=== PATIENT | male | born 1965 | race Caucasian/White ===

== ENCOUNTER 2021-03-08 05:07 | Emergency (ER) | payer MEDICAID ==
[~2021-03-08] VITALS: Ht 175.3 cm; Wt 137.6 kg
--- NOTE | 2021-03-08 05:18 | NUR ---
PT BIB [facility], PT HAVING A CHF EXACERBATION, PT LYING ON RIGHT SIDE ONCE PLACED IN HOSPITAL BED HE FEELS BETTER WITH THAT. PT ON O2 NC 2LPM, HE DESATS TO 76% ON ROOM AIR. IV TO RIGHT HAND, INTACT, FLUSHES EASILY, NO REDNESS OR SWELLING. PT ON CR MONITOR, AND LYING IN BED. PT IS METH POSITIVE FROM EARLIER. MD TO SEE PT.
[2021-03-08 05:58] LABS: BASOPHILS % (AUTO) 0 % (0-1); EOSINOPHILS % (AUTO) 4 % (1-7); LYMPHOCYTES % (AUTO) 17 % (22-44); MD NO; MEAN CORPUSCULAR HEMOGLOBIN 27.9 pg (27.5-34.5); MEAN CORPUSCULAR HGB CONC 33.4 g/dL (33.2-36.2); MEAN PLATELET VOLUME 7.6 fL (7.4-10.4); MONOCYTES % (AUTO) 12 % (2-9); NEUTROPHILS % (AUTO) 67 % (42-75); PLATELET COUNT 370 x10^3/uL (130-400); RED BLOOD COUNT 5.17 x10^6/uL (4.38-5.82); RED CELL DISTRIBUTION WIDTH 15.2 % (9.4-14.8)
--- NOTE | 2021-03-08 06:01 | NUR ---
SPOT WELDER BODY ASSEMBLY TO BEDSIDE TO DRAW LAB. PT IS NOW ON ALL FOURS, IN A POSITION OF COMFORT FOR HIM. HE IS RESTING ON THE HEAD OF THE BED IT IS RAISED. AT THIS TIME, THIS SEEMS TO BE THE BEST POSITION FOR THE PT, HE IS BREATHING EASIER, AND HIS O2 SATURATIONS HAVE CLIMBED TO 95% ON RA, HE KEEPS REMOVING HIS O2 NC. PTS O2 NC REPLACED ON HIM, AT 2LPM. PT TOLERATING BETTER, AND CALM. PT AGREES TO USE CALL LIGHT RATHER THAN YELL OUT OF THE ROOM HE'S BEEN DOING. PT IS POSITIVE FOR METHAMPHETAMINE USE
[2021-03-08 06:12] LABS: ANION GAP 6 mmol/L (5-15); CALCIUM 8.5 mg/dL (8.5-10.1); CHLORIDE 99 mmol/L (98-107)
[2021-03-08 06:17] LABS: CREATININE 1.85 mg/dL (0.7-1.3); TROPONIN I 0.036 ng/mL (0.000-0.045)
--- NOTE | 2021-03-08 06:53 | NUR ---
REPORT AND CARE TO OLIVERIO MAJANO.
--- NOTE | 2021-03-08 07:00 | NUR ---
ASSUMED CARE OF PT. PT LYING ON STOMOCH IN POSITION OF COMFORT, BREATHING EVEN AND UNLABORED
--- NOTE | 2021-03-08 07:35 | NUR ---
PT SITTING ON EDGE OF BED AND VOIDED ON FLOOR. PT BACK INTO BED AND VS OBTAINED. PT ASKING WHERE HIS FAMILY IS AND SAYING HE FELL LAST NIGHT. MD AT BEDSIDE EXAMINING PT AND TO SEE HOW PT WALKS
--- NOTE | 2021-03-08 08:21 | NUR ---
PT UOB AND AMBULATING WITHOUT ASSISTANCE AND OXYGEN SATURATION 95 PERCENT ON RA
--- NOTE | 2021-03-08 09:19 | NUR ---
PT SLEEPING, BREATHING EVEN AND UNLABORED
--- NOTE | 2021-03-08 09:29 | NUR ---
PHONE NUMBER LISTED FOR PT HOME: [phone]
[2021-03-08] MEDS ORDERED: FUROSEMIDE 20 MG/2 ML IV ONE (09:30)
[2021-03-08] MEDS ORDERED: FUROSEMIDE 20 MG/2 ML ONE (09:34)
--- NOTE | 2021-03-08 09:44 | NUR ---
TASK RN: PT MEDICATED PER DEC. PT PROVIDED URINAL. CALL LIGHT BEDSIDE, WITHIN REACH. RAILS UP.
--- NOTE | 2021-03-08 11:08 | NUR ---
SPOKE WITH DAUGHTER MARY WHO STATES SHE IS ENROUTE TO [employer]S OVERSEER PT. PT AWAKE AND AGITATED BUT REDIRECTABLE. PT CURRENTLY SITTING IN CHAIR WITH SITTER AND BREAKFAST ORDERED. PT ABLE TO COMMUNICATE WITH [facility], BROKEN SENTENCES. AWARE DAUGHTER IS ENROUTE
[2021-03-08 11:39] VITALS: BP 126/64
--- NOTE | 2021-03-08 12:08 | NUR ---
DAUGHTER AT BEDSIDE AND TO PROVIDE PT RIDE HOME
== END 2021-03-08 12:11 | disposition home or self-care (01) ==
LOC: ED 10:26
DX: I11.0 Hypertensive heart disease with heart failure (principal); I50.9 Heart failure, unspecified; F15.10 Other stimulant abuse, uncomplicated; Z72.9 Problem related to lifestyle, unspecified; R55 Syncope and collapse; I48.92 Unspecified atrial flutter; Z88.0 Allergy status to penicillin; F17.200 Nicotine dependence, unspecified, uncomplicated
CPT/HCPCS: 36415; 80048; 83880; 84484; 85025; 93005; 96374; 99285; J1940

== ENCOUNTER 2021-03-17 08:20 | Inpatient (IN) | payer MEDICAID ==
[~2021-03-17] VITALS: Ht 175.3 cm; Wt 132.0 kg
--- NOTE | 2021-03-17 08:26 | NUR ---
PATIENT ARRIVES FROM [facility] WITH [facility] FOR SOB, ABDOMINAL DISTENTION, TROPES ELEVATED, AFLUTTER RATE 150'S, RECENT METH USE
--- NOTE | 2021-03-17 08:52 | NUR ---
requested [facility]
[2021-03-17] MEDS: DILTIAZEM 125 MG in SODIUM CHLORIDE 0.9% 100 ML IV SCH ×2 (08:58→20:52)
[2021-03-17] MEDS ORDERED: SODIUM CHLORIDE FLUSH 10ML SYR IVF ONE (09:00)
[2021-03-17 09:26] LABS: BASOPHILS % (AUTO) 1 % (0-1); EOSINOPHILS % (AUTO) 4 % (1-7); LYMPHOCYTES % (AUTO) 11 % (22-44); MEAN CORPUSCULAR HEMOGLOBIN 27.5 pg (27.5-34.5); MEAN PLATELET VOLUME 7.2 fL (7.4-10.4); MONOCYTES % (AUTO) 11 % (2-9); NEUTROPHILS % (AUTO) 73 % (42-75); PLATELET COUNT 272 x10^3/uL (130-400); RED BLOOD COUNT 5.03 x10^6/uL (4.38-5.82); RED CELL DISTRIBUTION WIDTH 15.5 % (9.4-14.8)
[2021-03-17 09:28] LABS: MD NO
[2021-03-17 09:35] LABS: ALANINE AMINOTRANSFERASE 61 U/L (12-78); ALBUMIN 3.4 g/dL (3.4-5.0); CALCIUM 8.2 mg/dL (8.5-10.1); CHLORIDE 103 mmol/L (98-107); CREATININE 1.31 mg/dL (0.7-1.3)
[2021-03-17 09:39] LABS: ALKALINE PHOSPHATASE 200 U/L (45-117); BILIRUBIN,TOTAL 0.9 mg/dL (0.2-1.0); TOTAL PROTEIN 7.9 g/dL (6.4-8.2); TROPONIN I 0.025 ng/mL (0.000-0.045)
[2021-03-17 09:44] LABS: ANION GAP 5 mmol/L (5-15)
[2021-03-17] MEDS ORDERED: SODIUM CHLORIDE FLUSH 10ML SYR IVF PRN (10:30)
[2021-03-17] MEDS ORDERED: ASPI-963 PO (10:31)
[2021-03-17] MEDS ORDERED: ALPR0.25 PO (10:31)
[2021-03-17] MEDS ORDERED: ALPR0.5T7 PO (10:31)
[2021-03-17] MEDS ORDERED: ALPR1TAB2 PO (10:31)
[2021-03-17] MEDS ORDERED: LISI-167 PO (10:31)
[2021-03-17] MEDS ORDERED: APIX5TAB PO (10:31)
--- NOTE | 2021-03-17 10:59 | NUR ---
BEDSIDE REPORT FROM ROSITA MAJANO.
--- NOTE | 2021-03-17 11:32 | NUR ---
REPORT TO VIJAYA MAJANO.
[2021-03-17] MEDS ORDERED: ACETAMINOPHEN 325 MG TABLET PO PRN (12:00)
[2021-03-17] MEDS ORDERED: ONDANSETRON ODT 4 MG PO PRN (12:00)
[2021-03-17] MEDS ORDERED: POLYETHYLENE GLYCOL 17 GM PACKET PO PRN (12:00)
[2021-03-17] MEDS ORDERED: ONDANSETRON 2MG/ML, 2ML IVPush PRN (12:00)
[2021-03-17 12:05] VITALS: BP 116/81
[2021-03-17 12:08] VITALS: BP 116/81
[2021-03-17] MEDS ORDERED: AMIODARONE 150 MG in DEXTROSE 5% 100 ML IV ONE (12:18)
[2021-03-17] MEDS ORDERED: ACETAMINOPHEN 500 MG TABLET PO PRN (12:30)
[2021-03-17] MEDS ORDERED: FILTER 0.22 MICRON IV PRN (12:30)
[2021-03-17] MEDS: AMIODARONE 450 MG in DEXTROSE 5% 241 ML IV PRN ×2 (12:49→21:25)
[2021-03-17] MEDS: FUROSEMIDE 40 MG/4 ML IV SCH ×2 (13:14→20:52)
[2021-03-17] MEDS ORDERED: ALPR-585 PO (15:35)
[2021-03-17] MEDS ORDERED: METO25TA35 PO (15:35)
[2021-03-17] MEDS ORDERED: ASPI325T20 PO (15:35)
[2021-03-17] MEDS ORDERED: FURO40TA6 PO (15:35)
[2021-03-17] MEDS ORDERED: LISI-170 PO (15:35)
[2021-03-17] MEDS ORDERED: GABA300C PO (15:37)
[2021-03-17] MEDS ORDERED: DIGOXIN 0.25 MG/ML, 2ML IVPush ONE (16:00)
[2021-03-17 17:36] LABS: AMPHETAMINE SCREEN, URINE Positive (Negative); BARBITURATE SCREEN, URINE Negative (Negative); BENZODIAZEPINE SCREEN, URINE Positive (Negative); CANNABINOID SCREEN, URINE Negative (Negative); COCAINE SCREEN, URINE Negative (Negative); METHADONE SCREEN, URINE Negative (Negative); OPIATE SCREEN, URINE Negative (Negative)
[2021-03-17] MEDS ORDERED: METOPROLOL TARTRATE 50 MG TAB PO SCH (18:00)
[2021-03-17 18:50] VITALS: BP 112/70
[2021-03-17 19:57] VITALS: BP 136/84
[2021-03-17] MEDS: APIXABAN 5 MG TABLET PO SCH (20:52)
[2021-03-17] MEDS ORDERED: TEMAZEPAM 15 MG CAPSULE PO PRN (21:00)
[2021-03-18 01:16] VITALS: BP 134/79
[2021-03-18 05:00] VITALS: BP 102/68
[2021-03-18 05:30] LABS: BASOPHILS % (AUTO) 1 % (0-1); EOSINOPHILS % (AUTO) 2 % (1-7); LYMPHOCYTES % (AUTO) 19 % (22-44); MEAN CORPUSCULAR HEMOGLOBIN 27.1 pg (27.5-34.5); MEAN CORPUSCULAR HGB CONC 32.2 g/dL (33.2-36.2); MEAN PLATELET VOLUME 7.8 fL (7.4-10.4); MONOCYTES % (AUTO) 12 % (2-9); NEUTROPHILS % (AUTO) 66 % (42-75); PLATELET COUNT 324 x10^3/uL (130-400); RED BLOOD COUNT 5.35 x10^6/uL (4.38-5.82); RED CELL DISTRIBUTION WIDTH 15.7 % (9.4-14.8)
[2021-03-18 05:38] LABS: ALBUMIN 3.1 g/dL (3.4-5.0); ANION GAP 7 mmol/L (5-15); CALCIUM 8.6 mg/dL (8.5-10.1); CHLORIDE 101 mmol/L (98-107)
[2021-03-18 05:43] LABS: ALANINE AMINOTRANSFERASE 66 U/L (12-78); ALKALINE PHOSPHATASE 202 U/L (45-117); BILIRUBIN,TOTAL 1.4 mg/dL (0.2-1.0); CREATININE 2.38 mg/dL (0.7-1.3); TOTAL PROTEIN 7.6 g/dL (6.4-8.2)
[2021-03-18 06:14] LABS: MD SCAN
[2021-03-18 07:52] VITALS: BP 107/76
[2021-03-18] MEDS ORDERED: SENNA/DOCUSATE TABLET PO SCH (09:00)
[2021-03-18] MEDS ORDERED: DIGOXIN 0.125 MG TABLET PO SCH (09:00)
[2021-03-18] MEDS ORDERED: FUROSEMIDE 40 MG/4 ML IV SCH (09:00)
[2021-03-18] MEDS: APIXABAN 5 MG TABLET PO SCH ×2 (09:01→20:17)
[2021-03-18] MEDS: AMIODARONE 200 MG TABLET PO SCH ×2 (09:01→20:17)
[2021-03-18] MEDS: METOPROLOL TARTRATE 25 MG TAB PO SCH ×2 (09:04→18:06)
[2021-03-18 14:23] VITALS: BP 124/75
[2021-03-18] MEDS ORDERED: CALCIUM CARBONATE 500 MG TAB.CHEW PO PRN (18:00)
[2021-03-18 20:01] VITALS: BP 109/70
== END 2021-03-18 23:01 | disposition left against medical advice (07) | DRG 201 ==
LOC: ED 08:31 → EDIP 10:02 → 5SO 12:05
PROVIDERS: ADMIT Emergency Medicine; ATTEND Family Medicine
DX: I48.91 Unspecified atrial fibrillation (principal); I50.43 Acute on chronic combined systolic (congestive) and diastolic (congestive) heart failure; N17.9 Acute kidney failure, unspecified; D68.69 Other thrombophilia; E66.01 Morbid (severe) obesity due to excess calories; Z68.41 Body mass index [BMI] 40.0-44.9, adult; I11.0 Hypertensive heart disease with heart failure; Z79.01 Long term (current) use of anticoagulants; Z88.0 Allergy status to penicillin; Z88.8 Allergy status to other drugs, medicaments and biological substances; Z87.891 Personal history of nicotine dependence; Z71.3 Dietary counseling and surveillance; F15.10 Other stimulant abuse, uncomplicated; Z53.29 Procedure and treatment not carried out because of patient's decision for other reasons
CPT/HCPCS: 36415; 71045; 80053; 80307; 83036; 83880; 84484; 85025; 93005; 99285; G0378; J1940; J2405; J7060; J0282; J1160; Q0177